=== PATIENT | male | born 1985 | race Caucasian/White ===

== ENCOUNTER 2024-04-30 05:59 | Day surgery (SDC) | payer BC ==
[2024-04-29 10:51] VITALS: BMI 21.4
[2024-04-30] MEDS ORDERED: PROPOFOL 40 ML ONE (07:20)
[2024-04-30] MEDS ORDERED: fentaNYL 50 mcg/mL 1 mL Vial ONE (07:48)
[2024-05-06 14:04] LABS: EliA Celiac New Method **** NEW METHOD ****; t-Transglutaminase (tTG) IgA 4.8 EliAU/mL (<7 Negative)
== END 2024-04-30 09:09 | disposition home or self-care (01) ==
LOC: SDC 05:59
PROVIDERS: ATTEND Internal Medicine Gastroenterology
PROC: 0D753ZZ Dilation of Esophagus, Percutaneous Approach (ICD-10-PCS; principal; 2024-04-30)
PROC: 0DD98ZX Extraction of Duodenum, Via Natural or Artificial Opening Endoscopic, Diagnostic (ICD-10-PCS; principal; 2024-04-30)
DX: R13.13 Dysphagia, pharyngeal phase (principal); K29.80 Duodenitis without bleeding; K21.9 Gastro-esophageal reflux disease without esophagitis; E05.00 Thyrotoxicosis with diffuse goiter without thyrotoxic crisis or storm; R63.4 Abnormal weight loss; Z79.899 Other long term (current) drug therapy; Z88.5 Allergy status to narcotic agent; Z88.2 Allergy status to sulfonamides
CPT/HCPCS: 83516; 88305; J2704; J3010

== ENCOUNTER 2024-06-01 13:23 | Outpatient (CLI) | payer BC ==
[2024-06-01] MEDS ORDERED: E-Z-HD 98% W/W 340GM BOT (x-ray ONLY) ONE (14:21)
[2024-06-01] MEDS ORDERED: Barium Sulfate 96% 176 GM BOT (xray ONLY) ONE (14:21)
== END 2024-06-01 13:24 | disposition home or self-care (01) ==
LOC: RAD 13:23
PROVIDERS: ATTEND Physician Assistant Medical
DX: K21.9 Gastro-esophageal reflux disease without esophagitis (principal)
CPT/HCPCS: 74220